=== PATIENT | male | born 1995 | race Hispanic/Latino ===

== ENCOUNTER 2024-04-01 22:09 | Emergency (ER) | payer OTHER, SELFPAY ==
[2024-04-01] MEDS ORDERED: Ibuprofen 800 MG TAB ONE (22:22)
== END 2024-04-01 23:13 | disposition home or self-care (01) ==
LOC: BURERS 22:09
DX: S62.323A Displaced fracture of shaft of third metacarpal bone, left hand, initial encounter for closed fracture (principal); F17.290 Nicotine dependence, other tobacco product, uncomplicated; W21.07XA Struck by softball, initial encounter; Y93.64 Activity, baseball
CPT/HCPCS: 29125